=== PATIENT | female | born 1960 | race African-American/Black ===

== ENCOUNTER 2017-10-25 11:21 | Emergency (ER) | payer MEDICAID ==
[~2017-10-25] VITALS: Ht 162.6 cm; Wt 87.0 kg
[2017-10-25] MEDS ORDERED: IBUPROFEN 200MG TABLET ONE (11:33)
[2017-10-25 11:35] VITALS: BP 188/91
[2017-10-25] MEDS ORDERED: IBUPROFEN 600MG TABLET PO ONE (11:45)
== END 2017-10-25 12:26 | disposition home or self-care (01) ==
LOC: ER 11:21
DX: N61.0 Mastitis without abscess (principal); F17.200 Nicotine dependence, unspecified, uncomplicated; J45.909 Unspecified asthma, uncomplicated; I10 Essential (primary) hypertension
CPT/HCPCS: 99283

== ENCOUNTER 2021-01-03 10:37 | Emergency (ER) | payer MEDICAID ==
[~2021-01-03] VITALS: Ht 162.6 cm; Wt 85.0 kg
[2021-01-03] MEDS ORDERED: AMOX-424 MT (11:28)
[2021-01-03] MEDS ORDERED: TRAM50TA94 MT (11:28)
[2021-01-03 11:41] VITALS: BP 170/90
== END 2021-01-03 11:43 | disposition home or self-care (01) ==
LOC: ER 10:37
DX: K04.7 Periapical abscess without sinus (principal); K08.89 Other specified disorders of teeth and supporting structures; I10 Essential (primary) hypertension; J45.909 Unspecified asthma, uncomplicated; Z98.890 Other specified postprocedural states; Z91.010 Allergy to peanuts
CPT/HCPCS: 99283

== ENCOUNTER 2021-11-23 12:17 | Emergency (ER) | payer MEDICAID ==
[~2021-11-23] VITALS: Ht 157.5 cm; Wt 75.0 kg
[~2021-11-23 12:17] MED LIST: AMOX-424 MT; TRAM50TA94 MT
[2021-11-23 12:20] VITALS: BP 191/87
[2021-11-23] MEDS ORDERED: IBUPROFEN 600MG TABLET PO NR (14:07)
[2021-11-23] MEDS ORDERED: LISINOPRIL 20MG TABLET PO STA (14:20)
[2021-11-23] MEDS ORDERED: AMOX-494 PO (14:30)
[2021-11-23] MEDS ORDERED: CHLO473M2 PO (14:30)
[2021-11-23] MEDS ORDERED: IBUP-2030 PO (14:30)
== END 2021-11-23 14:48 | disposition home or self-care (01) ==
LOC: ER 12:17
DX: K12.0 Recurrent oral aphthae (principal); K02.9 Dental caries, unspecified; R03.0 Elevated blood-pressure reading, without diagnosis of hypertension; J45.909 Unspecified asthma, uncomplicated
CPT/HCPCS: 99283

== ENCOUNTER 2024-01-08 11:34 | Emergency (ER) | payer MEDICARE, MEDICAID ==
[~2024-01-08] VITALS: Ht 162.6 cm; Wt 86.1 kg
[~2024-01-08 11:34] MED LIST changes: +AMOX-494 PO; +CHLO473M2 PO; +IBUP-2030 PO
[2024-01-08 12:06] VITALS: O2SAT 100
[2024-01-08 12:56] LABS: BASOPHILS % 0.8 % (0.0-2.0); EOSINOPHILS % 1.1 % (0.0-5.0); HEMATOCRIT. 42.5 % (36.0-48.0); HEMOGLOBIN. 13.7 g/dL (12.0-16.0); MEAN CORPUSCULAR HEMOGLOBIN 29.9 pg (28.0-32.0); MEAN CORPUSCULAR HGB CONC 32.2 g/dL (31.0-37.0); MEAN CORPUSCULAR VOLUME 92.8 fL (81.0-99.0); NEUTROPHILS % 75.1 % (40.0-76.0); PLATELET 233 x1000/uL (130-400); RED BLOOD CELL COUNT 4.58 mill/uL (4.2-5.4); RED CELL DISTRIBUTION WIDTH 14.2 % (11.6-14.6); WHITE BLOOD COUNT 6.8 x1000/uL (4.5-11.0)
[2024-01-08 13:04] LABS: CARBON DIOXIDE 24 mEq/L (21-32); CHLORIDE 112 mEq/L (98-107); SODIUM 141 mEq/L (136-145)
[2024-01-08 13:05] LABS: CALCIUM 9.2 mg/dL (8.7-10.4)
[2024-01-08] MEDS: PREDNISONE 20MG TABLET PO ONE (13:09)
[2024-01-08 13:10] LABS: CREATININE 0.8 mg/dL (0.6-1.0); GLUCOSE 100 mg/dL (70-105); UREA NITROGEN BLOOD 15 mg/dL (9-23)
[2024-01-08] MEDS: ALBUTEROL (0.083%) 2.5MG/3ML NEB HHN ONE (13:10)
[2024-01-08 13:11] VITALS: PULSE 76; RESP 18
[2024-01-08] MEDS: IPRATROPIUM/ALBUTEROL 0.5-3(2.5)MG/3ML NEB HHN ONE (13:11)
[2024-01-08] MEDS ORDERED: GUAI-450 MT (14:15)
[2024-01-08] MEDS ORDERED: P50 MT (14:15)
[2024-01-08] MEDS ORDERED: ALBU90AE INH (14:15)
[2024-01-08] MEDS ORDERED: IBUP-2030 PO (14:15)
[2024-01-08 14:44] VITALS: BP 137/80; PULSE 76; RESP 18; TEMP 36.66960; O2SAT 100
== END 2024-01-08 14:46 | disposition home or self-care (01) ==
LOC: ER 11:34
DX: J45.901 Unspecified asthma with (acute) exacerbation (principal); I10 Essential (primary) hypertension; Z79.899 Other long term (current) drug therapy
CPT/HCPCS: 99285; 71045; 80048; 85025; 36415; 94640; 93005; J7512

== ENCOUNTER 2024-06-12 13:56 | Emergency (ER) | payer MEDICARE, MEDICAID ==
[~2024-06-12] VITALS: Ht 154.9 cm; Wt 87.0 kg
[~2024-06-12 13:56] MED LIST changes: +ALBU90AE INH; +GUAI-450 MT; +P50 MT
[2024-06-12 13:59] VITALS: O2SAT 98
[2024-06-12] MEDS: ONDANSETRON 4MG ODT PO ONE (15:00)
[2024-06-12] MEDS: DICYCLOMINE HCL 10MG CAPSULE PO ONE (15:00)
[2024-06-12] MEDS ORDERED: DOCUSATE SODIUM 100MG CAPSULE PO ONE (16:00)
[2024-06-12 16:04] LABS: BASOPHILS % 0.6 % (0.0-2.0); EOSINOPHILS % 0.1 % (0.0-5.0); HEMATOCRIT. 44.5 % (36.0-48.0); HEMOGLOBIN. 14.5 g/dL (12.0-16.0); LYMPHOCYTES % 9.4 % (20.0-50.0); MEAN CORPUSCULAR HEMOGLOBIN 29.4 pg (28.0-32.0); MEAN CORPUSCULAR HGB CONC 32.6 g/dL (31.0-37.0); MEAN PLATELET VOLUME 8.8 fl (7.4-10.4); MONOCYTES % 7.4 % (2.0-8.0); NEUTROPHILS % 82.5 % (40.0-76.0); PLATELET 229 x1000/uL (130-400); RED BLOOD CELL COUNT 4.94 mill/uL (4.2-5.4); RED CELL DISTRIBUTION WIDTH 14.4 % (11.6-14.6)
[2024-06-12 16:06] LABS: CHLORIDE 101 mEq/L (98-107); POTASSIUM 4.7 mEq/L (3.5-5.1); SODIUM 142 mEq/L (136-145)
[2024-06-12 16:07] LABS: CALCIUM 10.2 mg/dL (8.7-10.4); CARBON DIOXIDE 24 mEq/L (21-32)
[2024-06-12 16:12] LABS: CREATININE 0.8 mg/dL (0.6-1.0); GLUCOSE 79 mg/dL (70-105); UREA NITROGEN BLOOD 19 mg/dL (9-23)
[2024-06-12] MEDS: DOCUSATE SODIUM 100MG CAPSULE PO ONE ×2 (16:20→17:56)
[2024-06-12] MEDS: KETOROLAC 30MG/ML VIAL IM ONE (16:21)
[2024-06-12] MEDS ORDERED: POLY17PO43 PO (18:22)
[2024-06-12] MEDS ORDERED: IBUP-2029 MT (18:23)
[2024-06-12 18:55] VITALS: BP 183/66; PULSE 66; RESP 16; TEMP 36.6; O2SAT 98
== END 2024-06-12 18:58 | disposition home or self-care (01) ==
LOC: ER 13:56
DX: K80.20 Calculus of gallbladder without cholecystitis without obstruction (principal); K57.92 Diverticulitis of intestine, part unspecified, without perforation or abscess without bleeding; K56.41 Fecal impaction; J45.909 Unspecified asthma, uncomplicated; I10 Essential (primary) hypertension; Z98.890 Other specified postprocedural states; Z79.899 Other long term (current) drug therapy; Z87.19 Personal history of other diseases of the digestive system
CPT/HCPCS: 99285; 74176; 80048; 85025; 36415; 96372; J1885; Q0162; 99284